=== PATIENT | male | born 1990 | race African-American/Black ===

== ENCOUNTER 2019-01-13 02:52 | Emergency (ER) | payer MEDICAID ==
[~2019-01-13] VITALS: Ht 180.3 cm; Wt 65.0 kg
[2019-01-13 03:10] VITALS: BP 121/74
== END 2019-01-13 03:23 | disposition home or self-care (01) ==
LOC: ED 03:12
DX: F10.129 Alcohol abuse with intoxication, unspecified (principal); Z72.9 Problem related to lifestyle, unspecified; F17.200 Nicotine dependence, unspecified, uncomplicated
CPT/HCPCS: 99283

== ENCOUNTER 2021-01-15 22:23 | Emergency (ER) | payer MEDICAID ==
[~2021-01-15] VITALS: Ht 180.3 cm; Wt 72.1 kg
--- NOTE | 2021-01-15 22:45 | NUR ---
CC OF THROWING UP BRIGHT RED EMESIS STARTING 30 MIN AGO. DENIES BLACK COFFEE GROUND EMESIS AND DENIES BLACK TARRY STOOLS. PT STATES HE DRINKS 12 SHOTS DAILY WITH LAST DRINK ABOUT 2 HOURS AGO. PT STATES HE DETOX LAST MONTH FOR THE FIRST TIME, NO HX OF SZ ACTIVITY. PT SHAKY IN BED, REPEATS HE DOESNT FEEL WELL.
[2021-01-15] MEDS ORDERED: ONDANSETRON 2MG/ML, 2ML ONE (22:58)
[2021-01-15] MEDS ORDERED: MORPHINE SULFATE 4 MG/ML, 1ML ONE (22:58)
[2021-01-15] MEDS ORDERED: PANTOPRAZOLE 40 MG IV ONE (22:58)
[2021-01-15] MEDS ORDERED: LORazepam 2 MG/ML, 1ML ONE (22:59)
[2021-01-15] MEDS ORDERED: LORazepam 2 MG/ML, 1ML IVPush ONE (23:00)
[2021-01-15] MEDS ORDERED: MORPHINE SULFATE 4 MG/ML, 1ML IVPush PRN (23:00)
[2021-01-15] MEDS ORDERED: SODIUM CHLORIDE FLUSH 10ML SYR IVF ONE (23:00)
[2021-01-15] MEDS ORDERED: SODIUM CHLORIDE 0.9% 1,000ML IVBOLUS ONE (23:00)
[2021-01-15] MEDS ORDERED: PANTOPRAZOLE 40 MG IV IVPush ONE (23:00)
[2021-01-15] MEDS ORDERED: ONDANSETRON 2MG/ML, 2ML IVPush ONE (23:00)
--- NOTE | 2021-01-15 23:05 | NUR ---
DR SANTANA UPDATED THAT PT IS FEELING SHAKY. VERBAL ORDERS TO GIVE 2 MG MORPHINE INSTEAD OF 4 MG AND HE WILL ORDER ATIVAN WELL.
[2021-01-15 23:31] LABS: MEAN CORPUSCULAR HEMOGLOBIN 31.5 pg (27.5-34.5); MEAN CORPUSCULAR HGB CONC 34.5 g/dL (33.2-36.2); MEAN PLATELET VOLUME 7.3 fL (7.4-10.4); PLATELET COUNT 302 x10^3/uL (130-400); RED BLOOD COUNT 5.03 x10^6/uL (4.38-5.82)
[2021-01-15 23:32] LABS: ALANINE AMINOTRANSFERASE 28 U/L (12-78); ALBUMIN 4.1 g/dL (3.4-5.0); ANION GAP 10 mmol/L (5-15); CALCIUM 7.9 mg/dL (8.5-10.1); CHLORIDE 112 mmol/L (98-107); CREATININE 1.13 mg/dL (0.7-1.3)
--- NOTE | 2021-01-15 23:33 | NUR ---
PT IN [place] WITH EYES SHUT. CONNECTED TO PULSE OX AND LOAF COUNTER
[2021-01-15 23:34] LABS: ALKALINE PHOSPHATASE 65 U/L (45-117); BILIRUBIN,TOTAL 0.2 mg/dL (0.2-1.0)
[2021-01-15 23:55] LABS: PROTHROMBIN TIME 10.7 Seconds (9.6-11.5)
[2021-01-16 00:06] LABS: MD YES
[2021-01-16 00:10] LABS: <PLATELET ESTIMATE> ADEQUATE; <RBC MORPHOLOGY> NORMAL; EOS#(MANUAL) 0.08 x10^3/uL (0.0-0.4); EOS% (MANUAL) 2 % (1-7); LYMPH#(MANUAL) 1.85 x10^3/uL (1-3.4); LYMPHS% (MANUAL) 44 % (22-44); MONOS#(MANUAL) 0.42 x10^3/uL (0.3-2.7); MONOS% (MANUAL) 10 % (2-9); SEG#(MANUAL) 1.85 x10^3/uL (1.8-6.8); SEGS% (MANUAL) 44 % (42-75); SMALL PLATELETS 1+
--- NOTE | 2021-01-16 00:30 | NUR ---
pt sleeping, resp even and unlabored
--- NOTE | 2021-01-16 01:40 | NUR ---
attempted to wake pt up and ambulate. pt opens eyes but will immediately close them and fall back asleep. resp even and unlabored.
--- NOTE | 2021-01-16 02:00 | NUR ---
bedside report from [place] rn, pt care transferred at this time. pt nad, appears comfortable, resting on right side, eyes closed, even and unlabored respirations, bed in lowest,rails engaged, call light next to pt on bed. adrian.
--- NOTE | 2021-01-16 02:01 | NUR ---
report given to stephy reynolds
[2021-01-16 03:57] VITALS: BP 91/67
--- NOTE | 2021-01-16 03:58 | NUR ---
Patient given discharge instructions and they have confirmed that they understand the instructions. Patient ambulatory with steady gait. PROVIDED VOUCHER FOR TAXI, RN DISCUSSED IMPORTANCE OF QUITTING DRINKING. NAD, DENIES ADDITIONAL QUESTIONS OR NEEDS, NO PERSONAL BELONGINGS LEFT IN ROOM AFTER DC.
== END 2021-01-16 04:01 | disposition home or self-care (01) ==
LOC: ED 01-16 03:30
DX: K29.21 Alcoholic gastritis with bleeding (principal); K92.0 Hematemesis; R10.13 Epigastric pain; F17.200 Nicotine dependence, unspecified, uncomplicated
CPT/HCPCS: 36415; 80053; 80320; 83690; 85025; 85610; 85730; 86850; 86900; 96361; 96374; 96375; 99285; C9113; J2060; J2270; J2405; J7030; G0480

== ENCOUNTER 2021-07-07 23:43 | Emergency (ER) | payer MEDICAID ==
[~2021-07-07] VITALS: Ht 177.8 cm; Wt 70.0 kg
[2021-07-07 23:51] VITALS: BP 129/95
--- NOTE | 2021-07-07 23:54 | NUR ---
BIBA, FELL OFF 6 FT LADDER AT WORK, LANDED ON FEET. LT ANKLE SWELLING AND L ANKLE ABRASION, NO OBVIOUS DEFORMITY, CMS INTACT.
--- NOTE | 2021-07-08 01:47 | NUR ---
pt educated on dc, verbalized understanding. ambulatory to dc with steady gait.
== END 2021-07-08 01:48 | disposition home or self-care (01) ==
LOC: ED 23:59
DX: S93.402A Sprain of unspecified ligament of left ankle, initial encounter (principal); F17.200 Nicotine dependence, unspecified, uncomplicated; W18.30XA Fall on same level, unspecified, initial encounter; Y93.89 Activity, other specified; Y92.69 Other specified industrial and construction area as the place of occurrence of the external cause; Y99.0 Civilian activity done for income or pay
CPT/HCPCS: 99283